=== PATIENT | female | born 1980 | race African-American/Black ===

== ENCOUNTER → 2018-10-29 | Outpatient (CLI) | payer OTHER ==
[~2018-10-29] MED LIST: ADVIL MIGRAINE200 M1 PO; AMBIEN 5 MG TABL5 M1 PO; MOTION RELIEF25 MG PO; NAPROSYN500 MG PO; NORCO 5-325 TA1 EACH PO; PREDNISONE 20 M20 MG PO; PROAIR HFA8.5 GM IH; SUMATRIPTAN SU100 MG PO; TRAMADOL 50 MG50 MG PO; VALIUM2 MG PO; ZOFRAN ODT4 MG PO
== END ==
LOC: CAT 11:06
DX: H92.02 Otalgia, left ear (principal); R51 Headache

== ENCOUNTER 2019-09-30 20:23 | Emergency (ER) | payer OTHER ==
[~2019-09-30] VITALS: Ht 157.5 cm; Wt 113.4 kg
[2019-09-30] MEDS ORDERED: KEFLEX500 M1 PO (20:57)
[2019-09-30] MEDS ORDERED: PREDNISONE 20 M20 MG PO (20:57)
[2019-09-30 21:23] VITALS: BP 126/72
== END 2019-09-30 21:15 | disposition home or self-care (01) ==
LOC: ER 20:23
DX: T78.40XA Allergy, unspecified, initial encounter (principal); L03.317 Cellulitis of buttock; J45.909 Unspecified asthma, uncomplicated; G43.909 Migraine, unspecified, not intractable, without status migrainosus; X58.XXXA Exposure to other specified factors, initial encounter

== ENCOUNTER → 2020-06-29 | Outpatient (CLI) | payer OTHER ==
[~2020-06-29] MED LIST changes: +KEFLEX500 M1 PO
== END ==
LOC: LAB 12:12
PROVIDERS: ATTEND Nurse Practitioner
DX: U07.1 COVID-19 (principal)

== ENCOUNTER → 2021-03-27 | Outpatient (CLI) | payer OTHER | LOC: RAD 15:11 | PROVIDERS: ATTEND Nurse Practitioner | DX: M47.812 Spondylosis without myelopathy or radiculopathy, cervical region (principal); M25.811 Other specified joint disorders, right shoulder; M54.9 Dorsalgia, unspecified; V89.2XXA Person injured in unspecified motor-vehicle accident, traffic, initial encounter ==

== ENCOUNTER → 2021-04-23 | Outpatient (CLI) | payer OTHER | LOC: BC 04-20 15:20 | PROVIDERS: ATTEND Nurse Practitioner | DX: Z12.31 Encounter for screening mammogram for malignant neoplasm of breast (principal); N83.02 Follicular cyst of left ovary; D25.9 Leiomyoma of uterus, unspecified ==